=== PATIENT | female | born 1965 | race American Indian/Alaskan Native ===

== ENCOUNTER 2017-11-19 20:27 | Emergency (ER) | payer MEDICARE ==
--- NOTE | 2017-11-20 00:11 | Cat Scan Report ---
FINAL REPORT PROCEDURE: CT HEAD/BRAIN WO CON TECHNIQUE: Computerized tomography of the head was performed without contrast material. HISTORY: head injury w/+LOC, +nausea s/p GLF yesterday COMPARISON: No prior studies are available for comparison. FINDINGS: Brain: There is no evidence of intracranial hemorrhage. No parenchymal hemorrhage is seen. No mass lesions or mass effect is identified. No abnormal extra-axial fluid collections or masses are seen. Ventricles: The ventricles, sulcal pattern and fissures are prominent consistent with atrophy. Bones: No evidence of acute fracture. Paranasal sinuses: 1.6 centimeter nodular density visualized anteriorly in the right maxillary sinus suggesting a mucous retention cyst or polyp. Visualized portions the paranasal sinuses otherwise appear clear. Mastoid air cells: Visualized portions appear clear. IMPRESSION: There is evidence of mild atrophy. No acute abnormalities are seen. No evidence of intracranial hemorrhage or skull fracture. Mild paranasal sinus disease as described
--- NOTE | 2017-11-20 00:32 | XRay Report ---
FINAL REPORT PROCEDURE: XR SPINE THORACIC 2V TECHNIQUE: Thoracic spine radiographs, including AP and lateral projections. CPT 25206 HISTORY: midback pain s/p ground level fall yesterday COMPARISON: No prior studies are available for comparison. FINDINGS: There is mild mid thoracic scoliosis convex the right apex T5. Mild degenerative disc changes present throughout the lower half of the thoracic spine with small marginal osteophyte formation. Disc spaces otherwise are well preserved. Bone density appears normal. No fracture or subluxation visualized. IMPRESSION: Mild scoliosis and degenerative disc disease as described. No acute abnormalities are seen. No fracture or subluxation is seen..
[2017-11-20] MEDS ORDERED: ULTRAM PO ONE (02:48)
--- NOTE | 2017-11-20 02:54 | Emergency Department Report ---
ED Fall HPI - General Chief Complaint: Fall Stated Complaint: BACK PAIN Time Seen by Provider: 11/20/17 02:44 Source: patient, EMS Mode of arrival: Ambulatory - History of Present Illness Initial Comments: Patient is a 52-year-old female who lives in a assisted living who states she fell yesterday. Patient states she went to sit absolute her chair and she fell hurting her mid back and hitting her head. There was a loss of consciousness according to the patient. Patient states she initially had a headache but headache is improved. Patient states she does have some mid back pain is 5 out of 10 in severity. Patient denies any nausea vomiting chest pain rib pain, pain hip pain at this time. - Related Data Previous Rx's Medication Instructions Recorded Last Taken Type HYDROcodone/APAP 5-325 [[place] 1 each PO Q4HR PRN #12 tablet 11/20/17 Unknown Rx 5/325] Ibuprofen [Motrin] 600 mg PO Q8H PRN #20 tablet 11/20/17 Unknown Rx methOCARBAMOL [Robaxin TAB] 500 mg PO Q6H PRN #15 tablet 11/20/17 Unknown Rx Allergies Allergy/AdvReac Type Severity Reaction Status Date / Time No Known Allergies Allergy Unverified 11/19/17 21:29 ED Review of Systems ROS: Stated complaint: BACK PAIN Other details as noted in HPI Comment: All other systems reviewed and negative ED Past Medical Hx - Past Medical History Previous Medical History?: Yes Hx Diabetes: Yes Hx Psychiatric Treatment: Yes (schizophrenia, bipolar) - Surgical History Past Surgical History?: No - Social History Smoking Status: Current Every Day Smoker Substance Use Type: None - Medications Home Medications: Home Medications Medication Instructions Recorded Confirmed Last Taken Type HYDROcodone/APAP 5-325 [[place] 1 each PO Q4HR PRN #12 tablet 11/20/17 Unknown Rx 5/325] Ibuprofen [Motrin] 600 mg PO Q8H PRN #20 tablet 11/20/17 Unknown Rx methOCARBAMOL [Robaxin TAB] 500 mg PO Q6H PRN #15 tablet 11/20/17 Unknown Rx ED Physical Exam - General Limitations: No Limitations General appearance: alert, in no apparent distress - Head Head exam: Present: atraumatic, normocephalic - Eye Eye exam: Present: normal appearance - ENT ENT exam: Present: mucous membranes moist - Neck Neck exam: Present: normal inspection - Respiratory Respiratory exam: Present: normal lung sounds bilaterally. Absent: respiratory distress, wheezes, rales - Cardiovascular Cardiovascular Exam: Present: regular rate, normal rhythm. Absent: systolic murmur, diastolic murmur, rubs, gallop - GI/Abdominal GI/Abdominal exam: Present: soft, normal bowel sounds. Absent: distended, tenderness, guarding - Extremities Exam Extremities exam: Present: normal inspection - Back Exam Back exam: Present: normal inspection, paraspinal tenderness (mostly at the thoracic area.), vertebral tenderness - Neurological Exam Neurological exam: Present: alert, oriented X3 - Psychiatric Psychiatric exam: Present: normal affect, normal mood - Skin Skin exam: Present: warm, dry, intact, normal color. Absent: rash ED Course Vital Signs 11/19/17 21:19 Temperature 98.6 F Pulse Rate 89 Respiratory 18 Rate Blood Pressure 97/74 O2 Sat by Pulse 96 Oximetry ED Medical Decision Making - Radiology Data Radiology results: report reviewed CT of the head without contrast shows no acute abnormalities. X-ray of the thoracic spine shows no acute fracture.. - Medical Decision Making Patient is a 52-year-old black female who presents status post fall. Patient be given pain medicine be discharged home. Critical care attestation.: If time is entered above; I have spent that time in minutes in the direct care of this critically ill patient, excluding procedure time. ED Disposition Clinical Impression: Closed head injury Qualifiers: Encounter type: initial encounter Qualified Code(s): S09.90XA - Unspecified injury of head, initial encounter Back pain Qualifiers: Back pain location: thoracic back pain Chronicity: acute Back pain laterality: unspecified Qualified Code(s): M54.6 - Pain in thoracic spine Disposition: DC-01 TO HOME OR SELFCARE Is pt being admited?: No Does the pt Need Aspirin: No Condition: Stable Instructions: Back Pain (ED) Prescriptions: HYDROcodone/APAP 5-325 [[place] 5/325] 1 each PO Q4HR PRN #12 tablet PRN Reason: Pain Ibuprofen [Motrin] 600 mg PO Q8H PRN #20 tablet PRN Reason: Pain methOCARBAMOL [Robaxin TAB] 500 mg PO Q6H PRN #15 tablet PRN Reason: Pain Referrals: RUBEN MATOS MD [Primary Care Provider] - 3-5 Days
[2017-11-20 07:56] VITALS: BP 113/79
== END 2017-11-20 07:56 | disposition home or self-care (01) ==
LOC: ED 20:27
DX: S06.9X9A Unspecified intracranial injury with loss of consciousness of unspecified duration, initial encounter (principal); M54.6 Pain in thoracic spine; E11.9 Type 2 diabetes mellitus without complications; F20.9 Schizophrenia, unspecified; F31.9 Bipolar disorder, unspecified; F17.200 Nicotine dependence, unspecified, uncomplicated; W18.00XA Striking against unspecified object with subsequent fall, initial encounter; Y93.89 Activity, other specified; Y99.8 Other external cause status; Y92.099 Unspecified place in other non-institutional residence as the place of occurrence of the external cause
CPT/HCPCS: 70450; 72070

== ENCOUNTER 2018-02-24 09:22 | Emergency (ER) | payer MEDICARE ==
[2018-02-24] MEDS ORDERED: MOTRIN PO ONE (11:48)
--- NOTE | 2018-02-24 11:50 | Emergency Department Report ---
Blank Doc - Documentation Documentation: Patient is a 52-year-old black female who lives in a psychiatric longterm states the last several days she's had pain all over. Patient has a history of neuropathy and arthritis. Patient states she has pain in her arms and legs. Patient also states she has some mild suprapubic discomfort and some discomfort when trying to urinate. She says only small amounts coming out of the time. Brief physical exam patient is extremities showed no acute abnormality. Patient does have some mild suprapubic tenderness on palpation but there is no rebound or guarding. Patient had a urinalysis done the patient be given something for her symptomatically for h arthritic pain. Er
[2018-02-24] MEDS ORDERED: TYLENOL PO ONE (11:58)
[2018-02-24 12:19] LABS: Bilirubin,Urine NEG (Negative); Blood,Urine NEG (Negative); Color,Urine Yellow (Yellow); Mucus,Urine FEW /HPF; Protein,Urine <15 mg/dL mg/dL (Negative); WBC,Urine < 1.0 /HPF (0.0-6.0)
--- NOTE | 2018-02-24 12:36 | Emergency Department Report ---
ED General Adult HPI - General Chief complaint: Pain General Stated complaint: BODY PAIN Time Seen by Provider: 02/24/18 11:45 Source: patient Mode of arrival: Ambulatory Limitations: No Limitations - History of Present Illness Initial comments: This is a 52-year-old female who presents with generalized pain. She live in a psychiatric shelter. Patient has a history of neuropathy and arthritis. Patient states pain is in her arms and legs. Patient also states she has some mild suprapubic discomfort and some discomfort when trying to urinate. She says only small amounts coming out at a the time. Admits to frequency and urgency. Denies vaginal discharge, chest pain, dysuria , shortness of breath, and nausea or vomiting. -: days(s) (2-4 days) Location: abdomen (suprapubic pain) Radiation: non-radiation Severity scale (0 -10): 5 Quality: aching Consistency: intermittent Improves with: none Worsens with: other (urination) Associated Symptoms: denies other symptoms Treatments Prior to Arrival: none - Related Data Previous Rx's Medication Instructions Recorded Last Taken Type HYDROcodone/APAP 5-325 [[place] 1 each PO Q4HR PRN #12 tablet 11/20/17 Unknown Rx 5/325] Ibuprofen [Motrin] 600 mg PO Q8H PRN #20 tablet 11/20/17 Unknown Rx methOCARBAMOL [Robaxin TAB] 500 mg PO Q6H PRN #15 tablet 11/20/17 Unknown Rx Meloxicam [Mobic] 15 mg PO DAILY #30 tablet 02/24/18 Unknown Rx Allergies Allergy/AdvReac Type Severity Reaction Status Date / Time No Known Allergies Allergy Unverified 11/19/17 21:29 ED Review of Systems ROS: Stated complaint: BODY PAIN Other details as noted in HPI Constitutional: denies: chills, fever Respiratory: denies: cough, shortness of breath, wheezing Cardiovascular: denies: chest pain, palpitations Gastrointestinal: abdominal pain (suprapubic pressure). denies: nausea, diarrhea Genitourinary: urgency, frequency. denies: dysuria, discharge Musculoskeletal: myalgia (generalized body aches). denies: back pain, joint swelling, arthralgia Skin: denies: rash, lesions Neurological: denies: headache, weakness, numbness, paresthesias Psychiatric: denies: anxiety, depression ED Past Medical Hx - Past Medical History Hx Diabetes: Yes Hx Psychiatric Treatment: Yes (schizophrenia, bipolar) - Social History Smoking Status: Current Every Day Smoker Substance Use Type: None - Medications Home Medications: Home Medications Medication Instructions Recorded Confirmed Last Taken Type HYDROcodone/APAP 5-325 [[place] 1 each PO Q4HR PRN #12 tablet 11/20/17 Unknown Rx 5/325] Ibuprofen [Motrin] 600 mg PO Q8H PRN #20 tablet 11/20/17 Unknown Rx methOCARBAMOL [Robaxin TAB] 500 mg PO Q6H PRN #15 tablet 11/20/17 Unknown Rx Meloxicam [Mobic] 15 mg PO DAILY #30 tablet 02/24/18 Unknown Rx ED Physical Exam - General Limitations: No Limitations General appearance: alert, in no apparent distress - Respiratory Respiratory exam: Present: normal lung sounds bilaterally. Absent: respiratory distress - Cardiovascular Cardiovascular Exam: Present: regular rate, normal rhythm. Absent: systolic murmur, diastolic murmur, rubs, gallop - GI/Abdominal GI/Abdominal exam: Present: soft, tenderness (suprapubic tenderness), normal bowel sounds. Absent: distended, guarding, rebound, rigid, organomegaly, mass - Back Exam Back exam: Present: normal inspection, full ROM. Absent: CVA tenderness (R), CVA tenderness (L), rash noted - Neurological Exam Neurological exam: Present: alert, oriented X3 - Psychiatric Psychiatric exam: Present: normal affect, normal mood - Skin Skin exam: Present: warm, dry, intact, normal color. Absent: rash ED Course Vital Signs 02/24/18 09:29 Temperature 98.0 F Pulse Rate 72 Respiratory 16 Rate Blood Pressure 129/83 O2 Sat by Pulse 100 Oximetry ED Medical Decision Making - Medical Decision Making 52 y.o. female that presents with generalized body aches and urinary frequency and urgency. Patient examined by me and Dr. Burris and stable. No distress noted. Vitals are normal. Patient has a history of diabetes type 2, schizophrenia, and neuropathy. No suprapubic tenderness on exam. Obtained urinalysis, trace ketones and mucus. Start mobic 15 mg po daily. Discharged home. Follow-up with primary care provider in 2-3 days. Critical care attestation.: If time is entered above; I have spent that time in minutes in the direct care of this critically ill patient, excluding procedure time. ED Disposition Clinical Impression: Neuropathy, Generalized body aches Disposition: - TO HOME OR SELFCARE Is pt being admited?: No Does the pt Need Aspirin: No Condition: Stable Instructions: Diabetic Neuropathy (ED), Peripheral Neuropathy (ED) Additional Instructions: Take pain medication once daily as needed for pain. Follow-up with your primary care provider in 2-3 days. Return to the ER if symptoms are not improving as discussed. Prescriptions: Meloxicam [Mobic] 15 mg PO DAILY #30 tablet Referrals: [facility] [Outside] - 3-5 Days [facility] [Outside] - 3-5 Days [facility] [Outside] - 3-5 Days Forms: Work/School Release Form(ED) Time of Disposition: 12:44 Print Language: NAMIBIAN
[2018-02-24 12:57] VITALS: BP 122/76
== END 2018-02-24 12:54 | disposition home or self-care (01) ==
LOC: ED 09:22
DX: G62.9 Polyneuropathy, unspecified (principal); M79.1 Myalgia; E11.9 Type 2 diabetes mellitus without complications; F31.9 Bipolar disorder, unspecified; F20.9 Schizophrenia, unspecified; F17.200 Nicotine dependence, unspecified, uncomplicated
CPT/HCPCS: 81001; 99283

== ENCOUNTER 2018-09-01 15:52 | Emergency (ER) | payer MEDICARE ==
--- NOTE | 2018-09-02 00:27 | Emergency Department Report ---
- General Chief Complaint: Upper Respiratory Infection Stated Complaint: SPITTING UP BLOOD Time Seen by Provider: 09/02/18 00:26 Source: patient Mode of arrival: Wheelchair Limitations: No Limitations - History of Present Illness Initial Comments: Active 3-year-old -[place] female arrives via EMS from a personal [place] [facility] complaining of cough and cold symptoms. Patient states that she's had urinary symptoms. Patient denies any fever chills no nausea no vomiting. She has a past medical history of bipolar and schizophrenic. Patient does not know what medications that she takes. -: days(s) (3) Consistency: intermittent Associated Symptoms: cough Treatments Prior to Arrival: none - Related Data Previous Rx's Medication Instructions Recorded Last Taken Type HYDROcodone/APAP 5-325 [[place] 1 each PO Q4HR PRN #12 tablet 11/20/17 Unknown Rx 5/325] Ibuprofen [Motrin] 600 mg PO Q8H PRN #20 tablet 11/20/17 Unknown Rx methOCARBAMOL [Robaxin TAB] 500 mg PO Q6H PRN #15 tablet 11/20/17 Unknown Rx Meloxicam [Mobic] 15 mg PO DAILY #30 tablet 02/24/18 Unknown Rx Benzonatate [Tessalon Perle] 100 mg PO TID #15 capsule 09/02/18 Unknown Rx Allergies Allergy/AdvReac Type Severity Reaction Status Date / Time No Known Allergies Allergy Unverified 11/19/17 21:29 ED Review of Systems ROS: Stated complaint: SPITTING UP BLOOD Other details as noted in HPI Comment: All other systems reviewed and negative Respiratory: cough Genitourinary: urgency ED Past Medical Hx - Past Medical History Hx Diabetes: Yes Hx Psychiatric Treatment: Yes (schizophrenia, bipolar) - Surgical History Past Surgical History?: No - Social History Smoking Status: Current Every Day Smoker Substance Use Type: None - Medications Home Medications: Home Medications Medication Instructions Recorded Confirmed Last Taken Type HYDROcodone/APAP 5-325 [[place] 1 each PO Q4HR PRN #12 tablet 11/20/17 Unknown Rx 5/325] Ibuprofen [Motrin] 600 mg PO Q8H PRN #20 tablet 11/20/17 Unknown Rx methOCARBAMOL [Robaxin TAB] 500 mg PO Q6H PRN #15 tablet 11/20/17 Unknown Rx Meloxicam [Mobic] 15 mg PO DAILY #30 tablet 02/24/18 Unknown Rx Benzonatate [Tessalon Perle] 100 mg PO TID #15 capsule 09/02/18 Unknown Rx ED Physical Exam - General Limitations: No Limitations General appearance: alert, in no apparent distress - Head Head exam: Present: atraumatic, normocephalic - Eye Eye exam: Present: normal appearance - ENT ENT exam: Present: mucous membranes moist - Neck Neck exam: Present: normal inspection - Respiratory Respiratory exam: Present: normal lung sounds bilaterally. Absent: respiratory distress - Cardiovascular Cardiovascular Exam: Present: regular rate, normal rhythm. Absent: systolic murmur, diastolic murmur, rubs, gallop - GI/Abdominal GI/Abdominal exam: Present: soft, normal bowel sounds - Extremities Exam Extremities exam: Present: normal inspection - Back Exam Back exam: Present: normal inspection - Neurological Exam Neurological exam: Present: alert, oriented X3 - Psychiatric Psychiatric exam: Present: normal affect, normal mood - Skin Skin exam: Present: warm, dry, intact, normal color. Absent: rash ED Course Vital Signs 09/01/18 16:15 Temperature 98.2 F Pulse Rate 82 Respiratory 18 Rate Blood Pressure 113/71 O2 Sat by Pulse 100 Oximetry ED Medical Decision Making - Radiology Data Radiology results: report reviewed FINAL REPORT PROCEDURE: XR CHEST ROUTINE 2V TECHNIQUE: PA and lateral chest radiographs were obtained. CPT 73749 HISTORY: cough COMPARISON: No prior studies are available for comparison. FINDINGS: Heart: Normal. Mediastinum/Vessels: Normal. Lungs/Pleural space: Normal. Bony thorax: No acute osseous abnormality. Other: IMPRESSION: Normal examination. Transcribed By: [facility] Dictated By: GORDO LIEBERMAN MD Electronically Authenticated By: GORDO LIEBERMAN MD Signed Date/Time: 09/02/18 015 DD/ 2 TD/TT: 09/02/18 015 - Medical Decision Making Patient has been evaluated by this provider in fast track. She was given Tessalon Perles for cough Chest x-ray and urinalysis all negative. We'll discharge patient home on Tessalon Perles and instructed her to increase her fluid intake and to follow up with her primary care provider. Critical care attestation.: If time is entered above; I have spent that time in minutes in the direct care of this critically ill patient, excluding procedure time. ED Disposition Clinical Impression: Cough Disposition: DC-01 TO HOME OR SELFCARE Is pt being admited?: No Does the pt Need Aspirin: No Condition: Stable Instructions: Cold Symptoms (ED) Additional Instructions: She is taking cough medication as prescribed. Please increase her water intake and follow up with her primary care provider if symptoms persist or gets worse. Prescriptions: Benzonatate [Tessalon Perle] 100 mg PO TID #15 capsule Referrals: PRIMARY CARE, [Primary Care Provider] - 3-5 Days
[2018-09-02] MEDS ORDERED: TESSALON PERLES PO ONE ×2 (00:37→03:02)
--- NOTE | 2018-09-02 01:51 | XRay Report ---
FINAL REPORT PROCEDURE: XR CHEST ROUTINE 2V TECHNIQUE: PA and lateral chest radiographs were obtained. CPT 54166 HISTORY: cough COMPARISON: No prior studies are available for comparison. FINDINGS: Heart: Normal. Mediastinum/Vessels: Normal. Lungs/Pleural space: Normal. Bony thorax: No acute osseous abnormality. Other: IMPRESSION: Normal examination.
[2018-09-02 01:56] LABS: Bilirubin,Urine NEG (Negative); Blood,Urine NEG (Negative); Color,Urine Yellow (Yellow); Mucus,Urine 2+ /HPF; Protein,Urine <15 mg/dL mg/dL (Negative); RBC,Urine < 1.0 /HPF (0.0-6.0); Triple Phosphate Crystal,Urine FEW
[2018-09-02 03:12] VITALS: BP 120/83
== END 2018-09-02 03:10 | disposition home or self-care (01) ==
LOC: ED 15:52
DX: R05 Cough (principal); F31.9 Bipolar disorder, unspecified; F20.9 Schizophrenia, unspecified; E11.9 Type 2 diabetes mellitus without complications; F17.200 Nicotine dependence, unspecified, uncomplicated
CPT/HCPCS: 71046; 81001; 99284